=== PATIENT | male | born 1950 | race Caucasian/White ===

== ENCOUNTER → 2019-09-30 | Outpatient (CLI) | payer MEDICARE, SELFPAY | END | disposition home or self-care (01) | PROVIDERS: Visit Provider Dermatology | DX: L02.11 Cutaneous abscess of neck (principal) | CPT/HCPCS: 87070; 87077; 87186; 87205 ==

== ENCOUNTER → 2020-05-23 10:40 | Outpatient (CLI) | payer MEDICARE, SELFPAY ==
--- NOTE | 2020-05-23 10:43 | CDU_ITS ---
Reason For Study: Bruit Rt. Velocities/BP Lt. Velocities/BP Prox CCA 96.9/17.3 cm/sec. Prox CCA 96.1/18.8 cm/sec. Mid CCA 83.9/17.3 cm/sec. Mid CCA 96.1/18.8 cm/sec. Dist CCA 79.9/20 cm/sec. Dist CCA 87.6/17.6 cm/sec. Prox ICA 53.1/14.6 cm/sec. Prox ICA 60.5/17.6 cm/sec. Mid ICA 82.7/25.6 cm/sec. Mid ICA 66.7/17.6 cm/sec. Dist ICA 101.1/31.1 cm/sec. Dist ICA 88.8/23.7 cm/sec. Rt. ICA/CCA = 1.2. Lt. ICA/CCA = 1.0. Prox ECA 65.1/10.2 cm/sec. Prox ECA 70.3/6.5 cm/sec. Rt. Vert. 61.8/16.3 cm/sec. Lt. Vert. 50.9/10.2 cm/sec. Right Extracranial There is intimal thickening but no significant atherosclerotic plaque noted in the right common carotid artery. There is intimal thickening but no significant atherosclerotic plaque noted in the right internal carotid artery. There is intimal thickening but no significant atherosclerotic plaque noted in the right external carotid artery. Antegrade flow is noted in the right vertebral artery. Left Extracranial There is intimal thickening but no significant atherosclerotic plaque noted in the left common carotid artery. There is intimal thickening but no significant atherosclerotic plaque noted in the left internal carotid artery. There is intimal thickening but no significant atherosclerotic plaque noted in the left external carotid artery. Antegrade flow is noted in the left vertebral artery. Procedure Carotid Duplex 98223. This is a Carotid Duplex examination using B-mode, color flow and specral Doppler. Exam performed in department. Interpretation Summary No significant atherosclerotic plaque or stenosis noted in the internal carotid arteries bilaterally. Flow within the vertebral arteries is antegrade bilaterally. Ordering Physician: Lennie Kyle Referring Physician: Lennie Kyle Performed By: Michelle Omalley RVT
== END ==
PROVIDERS: PCP Internal Medicine; Referring Provider Internal Medicine; Visit Provider Internal Medicine
DX: R09.89 Other specified symptoms and signs involving the circulatory and respiratory systems (principal)
CPT/HCPCS: 93880

== ENCOUNTER → 2022-11-19 | Outpatient (CLI) | payer MEDICARE, SELFPAY ==
--- NOTE | 2022-11-25 16:26 | STRESSREP ---
Stress Test Report Date: 11/19/2022 Procedure: Exercise tolerance test/imaging study Indications: CAD Consent: Per the patient Procedure: The patient exercised on a Shun protocol for 7 minutes and 1 second achieving a peak heart rate of 136 bpm (91% predicted maximal heart rate) with a peak blood pressure 164/72 mmHg and a peak MET capacity of 10.1 METs. The baseline ECG demonstrated normal sinus rhythm, right bundle branch block. The peak exercise ECG demonstrated no significant ischemic changes. EKG during recovery revealed no significant ischemic changes [There were no cardiac dysrhythmias pretest, during exercise, or recovery]. The functional capacity was considered excellent for age. There was [no complaint of chest discomfort during exercise or recovery]. The examination was discontinued secondary to achieving target heart rate. Impression: 1. Technically adequate (percent predicted maximal heart rate greater than 85%) exercise tolerance test 2. Stress test is negative for exercise-induced EKG changes of ischemia 3. The test test is negative for exercise-induced chest pain 4. Functional capacity is excellent for age 5. Nuclear images pending Myocardial perfusion imaging study: Technique: The patient was injected with 11.5 mCi of technetium 99m Cardiolite and subsequently rest SPECT Cardiolite nuclear imaging was obtained in the horizontal long, vertical long, and short axis views. The patient exercised on a Shun protocol. Please see above for details. The patient was injected with 33.5 mCi of technetium 99m Cardiolite and subsequently stress SPECT Cardiolite nuclear imaging was obtained in the horizontal long, vertical long, and short axis views. A gated Cardiolite study at peak stress was obtained. Interpretation: Rest and stress SPECT Cardiolite nuclear imaging status post realignment, normalization, and attenuation correction, demonstrates overall normal myocardial radioisotope uptake. The gated Cardiolite study demonstrates no significant regional wall motion abnormalities. The reported LVEF is greater than 70%. Impression: 1. There is no evidence of significant ischemia or infarction. 2. The gated Cardiolite study reports an LVEF of greater than 70%. This note was generated with [employer] software. It may contain incorrect words, spelling, and punctuation that were not noted in checking the note before signing.
== END | disposition home or self-care (01) ==
LOC: CVS 06:53
PROVIDERS: PCP Internal Medicine; Referring Provider Internal Medicine; Visit Provider Internal Medicine
DX: I25.10 Atherosclerotic heart disease of native coronary artery without angina pectoris (principal)
CPT/HCPCS: 78452; 93017; A9500; A4216

== ENCOUNTER → 2023-03-03 | Outpatient (CLI) | payer MEDICARE, SELFPAY ==
--- NOTE | 2023-03-03 06:53 | CT_ITS ---
EXAM: CT ANGIOGRAPHY CHEST WITH INTRAVENOUS CONTRAST CLINICAL INDICATION: THORACIC AORTIC ANEURYSM TECHNIQUE: Helically acquired angiography images were obtained of the chest with intravenous contrast. This CT exam was performed using one or more of the following dose reduction techniques: automated exposure control, adjustment of the mA and/or kV according to patient size, and/or use of iterative reconstruction technique. MIP reconstructed images were created and reviewed. CONTRAST: IV 100mL Isovue-370 RADIATION DOSE: CTDIvol = 6.73 mGy, DLP = 270.13 mGy-cm COMPARISON: No relevant prior studies available. FINDINGS: PULMONARY ARTERIES: Unremarkable. Normal in caliber. No evidence of pulmonary embolism. Normal pulmonary arteries. AORTA: Mild dilatation of the ascending aorta with a diameter of 3.6 cm versus 2.74 cm from the descending thoracic aorta. No thoracic aortic dissection. Normal aortic arch and origins of the great vessels. GREAT VESSELS OF AORTIC ARCH: Unremarkable. Normal in caliber. No evidence of dissection. 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 SUPERIOR MESENTERIC ARTERY: Widely patent SMA. OTHER ARTERIES: Widely patent subclavian origins of the vertebral arteries, right is dominant. LUNGS AND PLEURAL SPACES: Pulmonary hyperinflation and flattening of the hemidiaphragms. Mild peripheral peribronchial wall thickening. No suspicious pulmonary nodules or infiltrates. No pleural effusion or thickening. No pneumothorax. HEART: Minimal calcified plaques in the proximal LAD branch of the left coronary artery and minimal calcified plaque at the origin of the circumflex branch. Normal right coronary artery calcifications. Normal cardiac size. Normal pericardium. Heart size is normal. MEDIASTINUM: Unremarkable. No mediastinal or hilar adenopathy. Esophagus is unremarkable. No hiatal hernia. THYROID: Unremarkable. No thyroid lesions. BONES/JOINTS: Unremarkable. No suspicious lytic or blastic abnormality. CT/Chest WITH Contrast IMPRESSION: 1. Mild dilatation of the ascending aorta with a diameter of 3.6 cm versus 2.74 cm for the descending thoracic aorta. No suspicious thoracic aortic aneurysm or dissection. 2. No CTA evidence of pulmonary thromboemboli. 3. Minimal calcified plaques in the proximal LAD branch and the origin of the circumflex branch. Normal cardiac size and normal pericardium. 4. Mild airway predominant type of COPD. 5. No acute cardiopulmonary pathology. 6. 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 7. Normal SMA. 8. Normal aortic arch and origins of the great vessels. Electronically Signed: Wolfgang Farfan MD at 9:22 EST ,
[2023-03-03 07:21] LABS: CREATININE FINGERSTICK < 1.0 mg/dL (0.70-1.30); EGFR FINGERSTICK > 60.0000 mL/min (>60)
== END | disposition home or self-care (01) ==
LOC: CT 06:52
PROVIDERS: PCP Internal Medicine; Referring Provider Internal Medicine; Visit Provider Internal Medicine
DX: I71.20 Thoracic aortic aneurysm, without rupture, unspecified (principal)
CPT/HCPCS: 71260; Q9967

== ENCOUNTER → 2024-03-26 | Outpatient (CLI) | payer MEDICARE, SELFPAY ==
--- NOTE | 2024-03-26 06:44 | CT_ITS ---
EXAM: CT ANGIOGRAPHY CHEST WITH INTRAVENOUS CONTRAST CLINICAL INDICATION: thoracic aortic aneurysm TECHNIQUE: Helically acquired angiography images were obtained of the chest with intravenous contrast. This CT exam was performed using one or more of the following dose reduction techniques: automated exposure control, adjustment of the mA and/or kV according to patient size, and/or use of iterative reconstruction technique. MIP reconstructed images were created and reviewed. CONTRAST: IV 100mL Isovue-370 COMPARISON: 03/03/2023 FINDINGS: PULMONARY ARTERIES: No significant abnormality. Normal in caliber. No evidence of pulmonary embolism. AORTA: 3.6 cm ascending aortic ectasia is again identified. No aortic dissection. Mild atherosclerosis. GREAT VESSELS OF AORTIC ARCH: No significant abnormality. Normal in caliber. No evidence of dissection. LUNGS AND PLEURAL SPACES: No significant abnormality. No mass. No consolidation or edema. No pleural effusion or thickening. No pneumothorax. HEART: No significant abnormality. Heart size is normal. No pericardial effusion. MEDIASTINUM: No significant abnormality. No mediastinal or hilar adenopathy. Esophagus is unremarkable. No hiatal hernia. THYROID: No significant abnormality. No thyroid lesions. BONES/JOINTS: Degenerative changes in the visualized axial and appendicular structures. No suspicious lytic or blastic abnormality. OTHER FINDINGS: Mild stenosis of the celiac origin with additional poststenotic ectasia. CT/CTA Chest W/WO Contrast IMPRESSION: 1. 3.6 cm ascending aortic ectasia is again identified. No aortic dissection. Mild atherosclerosis. No additional acute findings. 2. 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 Electronically Signed: Trever Mcgill DO at 22:01 EST ,
[2024-03-26 07:09] LABS: CREATININE FINGERSTICK < 1.0 mg/dL (0.70-1.30); EGFR FINGERSTICK > 60.0000 mL/min (>60)
== END | disposition home or self-care (01) ==
LOC: CT 06:44
PROVIDERS: PCP Internal Medicine; Referring Provider Internal Medicine; Visit Provider Internal Medicine
DX: I71.20 Thoracic aortic aneurysm, without rupture, unspecified (principal)
CPT/HCPCS: 71275; Q9967